=== PATIENT | female | born 2000 | race Two or more races ===

== ENCOUNTER 2021-04-22 07:17 | Day surgery (SDC) | payer OTHER | END 2021-04-22 20:40 | disposition home or self-care (01) | LOC: CIR.AMB 07:17 | PROVIDERS: ATTEND Specialist | DX: O02.1 Missed abortion (principal); Z20.822 Contact with and (suspected) exposure to COVID-19 ==

== ENCOUNTER 2023-08-29 08:11 | Outpatient (CLI) | payer OTHER ==
[2023-08-29 09:08] LABS: PH,URINE 6.5 (5.0-8.0); URINE APPEARANCE Cloudy; URINE BILIRRUBIN Negative (NEGATIVE); URINE BLOOD NHT; URINE COLOR Yellow; URINE GLUCOSE Negative (NEGATIVE); URINE LEUKOCYTE Large; URINE NITRATE Negative; URINE PROTEIN Negative (NEGATIVE); URINE UROBILINOGEN 0.2 E.U./dl
[2023-08-29 09:09] LABS: HEMATOCRIT 29.1 % (36.0-45.00); HEMOGLOBIN 9.4 g/dL (12.0-15.00); MEAN CELL VOLUME 78.6 fL (80.00-100.00); MEAN CORPUSCULAR HEMOGLOBIN 25.4 pg (27.00-32.0); MEAN CORPUSCULAR HGB CONC 32.3 g/dl (32.0-36.0); PLATELET COUNT 258 K/uL (150-450); RED CELL DISTRIBUTION WIDTH 17.1 % (11.5-14.5)
[2023-08-29 09:11] LABS: URINE BACTERIA 5228.8 uL (0.0-1933); URINE EPITHELIAL CELLS 59.5 uL (0.0-38.8); URINE RBC 4.8 uL (0.0-20.8); URINE WBC 1319.7 uL (0.0-23.2)
[2023-08-29] MEDS ORDERED: FERROUS SULFAT325 MG PO (15:21)
[2023-08-29] MEDS ORDERED: MACROBID 100 M100 MG PO (15:21)
== END 2023-08-29 16:48 | disposition home or self-care (01) ==
LOC: OBS/DEL 08:11
PROVIDERS: ATTEND Specialist
DX: O23.32 Infections of other parts of urinary tract in pregnancy, second trimester (principal); N39.0 Urinary tract infection, site not specified; O99.012 Anemia complicating pregnancy, second trimester; Z3A.27 27 weeks gestation of pregnancy

== ENCOUNTER → 2023-10-09 11:44 | Outpatient (CLI) | payer OTHER ==
[~2023-10-09 11:44] MED LIST: FERROUS SULFAT325 MG PO; MACROBID 100 M100 MG PO
== END | disposition home or self-care (01) ==
LOC: PRENATAL 11:44
PROVIDERS: ATTEND Obstetrics & Gynecology Maternal & Fetal Medicine
DX: O26.849 Uterine size-date discrepancy, unspecified trimester (principal); O36.8199 Decreased fetal movements, unspecified trimester, other fetus; Z3A.32 32 weeks gestation of pregnancy

== ENCOUNTER 2023-11-08 12:57 | Inpatient (IN) | payer OTHER ==
[~2023-11-08] VITALS: Ht 157.5 cm; Wt 3.6 kg
[2023-11-29 13:38] LABS: HEMATOCRIT 36.2 % (36.0-45.00); HEMOGLOBIN 11.8 g/dL (12.0-15.00); MEAN CELL VOLUME 84.3 fL (80.00-100.00); MEAN CORPUSCULAR HEMOGLOBIN 27.5 pg (27.00-32.0); MEAN CORPUSCULAR HGB CONC 32.7 g/dl (32.0-36.0); PLATELET COUNT 221 K/uL (150-450)
[2023-11-29 13:39] LABS: RED CELL DISTRIBUTION WIDTH 22.5 % (11.5-14.5)
[2023-11-29 14:08] LABS: INR 0.95; PARTIAL THROMBOPLASTIN TIME 30.2 SECONDS (22.0-34.0)
[2023-11-29 14:09] LABS: ALBUMIN 2.7 gm/dL (3.4-5.0); BILIRUBIN TOTAL 0.26 mg/dL (0.3-1.2); CALCIUM 9.1 mg/dL (8.5-10.1); CREATININE SERUM 0.53 mg/dL (0.55-1.02); GFR 142.95; GLOBULINA 3.8 G/DL (2.4-3.5); POTASSIUM 4.16 mEq/L (3.5-5.1); TOTAL PROTEIN 6.5 gm/dL (6.4-8.2)
[2023-11-29 14:12] LABS: PH,URINE 6.5 (5.0-8.0); URINE APPEARANCE Cloudy; URINE BILIRRUBIN Negative (NEGATIVE); URINE BLOOD Negative; URINE COLOR Yellow; URINE GLUCOSE Negative (NEGATIVE); URINE LEUKOCYTE Moderate; URINE NITRATE Negative; URINE PROTEIN Negative (NEGATIVE)
[2023-11-29 14:17] LABS: URINE BACTERIA 2281.6 uL (0.0-1933); URINE RBC 4.5 uL (0.0-20.8); URINE WBC 122.8 uL (0.0-23.2)
[2023-11-30] MEDS ORDERED: PRENATAL TABLE1 EAC1 PO (07:57)
[2023-11-30] MEDS ORDERED: IRON236 MG PO (07:57)
[2023-11-30] MEDS ORDERED: MAXFE CAPLET1 EAC1 (10:44)
[2023-12-01 01:42] LABS: HEMOGLOBIN 10.9 g/dL (12.0-15.00); MEAN CELL VOLUME 84.4 fL (80.00-100.00); MEAN CORPUSCULAR HEMOGLOBIN 27.8 pg (27.00-32.0); PLATELET COUNT 210 K/uL (150-450); RED BLOOD COUNT 3.91 M/uL (4.00-6.00)
[2023-12-03] MEDS ORDERED: IBUPROFEN800 MG PO (08:26)
== END 2023-12-03 13:26 | disposition home or self-care (01) | DRG 788 ==
LOC: OB/GYN 11-30 07:53 → O/R 11-30 07:53 → OB/GYN 11-30 09:00
PROVIDERS: ADMIT Specialist; ATTEND Specialist
PROC: 4A1HXCZ Monitoring of Products of Conception, Cardiac Rate, External Approach (ICD-10-PCS; 2023-11-30)
PROC: 10D00Z1 Extraction of Products of Conception, Low, Open Approach (ICD-10-PCS; principal; 2023-11-30 09:00)
DX: O33.8 Maternal care for disproportion of other origin (principal); O99.824 Streptococcus B carrier state complicating childbirth; O48.0 Post-term pregnancy; O99.02 Anemia complicating childbirth; D64.9 Anemia, unspecified; Z3A.40 40 weeks gestation of pregnancy; Z37.0 Single live birth; Z20.822 Contact with and (suspected) exposure to COVID-19

== ENCOUNTER 2025-06-29 18:17 | Inpatient (IN) | payer OTHER ==
[~2025-06-29] VITALS: Ht 152.4 cm; Wt 90.3 kg
[2025-06-29 17:11] VITALS: BP 96/59
[~2025-06-29 18:17] MED LIST changes: +IBUPROFEN800 MG PO; +IRON236 MG PO; +MAXFE CAPLET1 EAC1; +PRENATAL TABLE1 EAC1 PO
[2025-06-29] MEDS ORDERED: RINGERS SOLUTION,LACTATED 1,000 ML IV SCH (18:30)
[2025-06-29 18:52] LABS: BASO % 0.1 % (0.1-1.2); EOS # 0.03 (0.04-0.54); EOS % 0.2 % (0.7-7.0); LYMPH # 1.57 (1.18-3.74); LYMPH % 11.0 % (19.3-53.1); MEAN PLATELET VOLUME 9.00 fl (9.4-12.4); MONO # 0.80 (0.24-0.82); MONO % 5.6 % (4.7-12.5); NEUT # 11.55 (1.56-6.13); NEUT % 81.4 % (34.0-71.1); RED CELL DISTRIBUTION WIDTH 18.2 % (11.6-14.4)
[2025-06-29 18:54] LABS: URINE APPEARANCE Clear; URINE BILIRRUBIN Negative (NEGATIVE); URINE BLOOD Negative; URINE COLOR Yellow; URINE GLUCOSE Negative (NEGATIVE); URINE KETONE 15 (NEGATIVE); URINE LEUKOCYTE Large; URINE NITRATE Negative; URINE PROTEIN Trace (NEGATIVE); URINE UROBILINOGEN 1.0 E.U./dl
[2025-06-29 18:57] LABS: URINE BACTERIA 1673.8 uL (0.0-1933); URINE EPITHELIAL CELLS 88.9 uL (0.0-38.8); URINE RBC 3.3 uL (0.0-20.8); URINE WBC 131.0 uL (0.0-23.2)
[2025-06-29 19:06] LABS: INR 1.0
[2025-06-29 19:22] LABS: ALT/SGPT 14.0 U/L (12-78); AST/SGOT 13.0 U/L (15-37); BILIRUBIN TOTAL 0.5 mg/dL (0.3-1.2); BUN CREA RATIO 11.0 (7.0-25.0); CREATININE SERUM 0.44 mg/dL (0.55-1.02); GFR 175.68; GLOBULINA 3.9 G/DL (2.4-3.5); GLUCOSE FASTING 74.0 mg/dL (65-100); OSMOLALITY SERUM 275.0 MOSM/KG (275-295)
[2025-06-29 19:23] LABS: URINE CAST 0.00 uL (0.0-1.40); URINE MUCUS NEGATIVE
[2025-06-29 19:24] LABS: TYPE CELLS SQUAMOUS; URINE YEAST FEW /hpf
[2025-06-29 20:21] VITALS: BP 113/71
[2025-06-29 23:20] VITALS: BP 106/49
[2025-06-30 03:09] VITALS: BP 115/69
[2025-06-30 06:19] VITALS: BP 100/59; O2SAT 98
[2025-06-30] MEDS ORDERED: RINGERS SOLUTION,LACTATED 1,000 ML IV SCH (08:00)
[2025-06-30] MEDS ORDERED: SOD FERRIC GLUC COMPLX/SUCROSE 62.5 MG in 0.9 % SODIUM CHLORIDE 50 ML IV SCH (09:00)
[2025-06-30 12:45] VITALS: BP 94/61
[2025-06-30 15:13] VITALS: BP 101/64
[2025-06-30 15:32] VITALS: BP 101/64
[2025-06-30 16:00] VITALS: BP 115/80
[2025-07-01] VITALS: BP 99/53
[2025-07-01 08:41] VITALS: BP 108/64
[2025-07-01] MEDS ORDERED: FERROUS SULFATE 325 MG TABLET.EC PO SCH (09:00)
[2025-07-01] MEDS ORDERED: EPOETIN ALFA-EPBX 10,000 UNIT/ML VIAL (Retacrit) SUBCUTANEO NR (12:30)
[2025-07-01 17:13] VITALS: BP 98/67
[2025-07-02] VITALS: BP 105/63
[2025-07-02] MEDS ORDERED: BETAMETHASONE ACETATE,SOD PHOS 30 MG/5 ML ML IM STA (07:53)
[2025-07-02 09:37] VITALS: BP 107/67
[2025-07-02 16:14] VITALS: BP 110/68
[2025-07-03] VITALS: BP 107/62
[2025-07-03 00:54] LABS: BASO % 0.2 % (0.1-1.2); EOS # 0.00 (0.04-0.54); EOS % 0.0 % (0.7-7.0); LYMPH # 1.32 (1.18-3.74); LYMPH % 6.8 % (19.3-53.1); MEAN PLATELET VOLUME 9.20 fl (9.4-12.4); MONO # 0.79 (0.24-0.82); MONO % 4.1 % (4.7-12.5); NEUT # 15.66 (1.56-6.13); NEUT % 81.1 % (34.0-71.1); RED CELL DISTRIBUTION WIDTH 18.6 % (11.6-14.4)
[2025-07-03 01:40] LABS: BAND MAN 8.0 %; EOSINOPHIL MAN 1.0 %; LYMPHOCYTE MAN 6.0 %; MYELOCYTE 6.0 %; NEUTROPHILS MAN 79.0 %
[2025-07-03 08:00] VITALS: BP 101/61
[2025-07-03] MEDS ORDERED: BETAMETHASONE ACETATE,SOD PHOS 30 MG/5 ML ML IM NR (08:00)
[2025-07-03] MEDS ORDERED: EPOETIN ALFA-EPBX 10,000 UNIT/ML VIAL (Retacrit) SUBCUTANEO SCH (09:00)
[2025-07-03 16:00] VITALS: BP 93/52
[2025-07-03 23:39] VITALS: BP 112/65
[2025-07-04 08:00] VITALS: BP 107/54
[2025-07-04 17:38] VITALS: BP 124/78
[2025-07-04 18:10] LABS: BASO % 0.3 % (0.1-1.2); EOS # 0.04 (0.04-0.54); EOS % 0.2 % (0.7-7.0); LYMPH # 2.10 (1.18-3.74); LYMPH % 9.8 % (19.3-53.1); MEAN PLATELET VOLUME 8.90 fl (9.4-12.4); MONO # 1.93 (0.24-0.82); MONO % 9.0 % (4.7-12.5); NEUT # 15.53 (1.56-6.13); NEUT % 72.8 % (34.0-71.1); RED CELL DISTRIBUTION WIDTH 21.3 % (11.6-14.4)
[2025-07-05 01:28] VITALS: BP 104/68
[2025-07-05 08:36] VITALS: BP 101/64
[2025-07-05 09:09] LABS: BASO % 0.3 % (0.1-1.2); EOS # 0.06 (0.04-0.54); EOS % 0.3 % (0.7-7.0); LYMPH # 2.19 (1.18-3.74); LYMPH % 10.6 % (19.3-53.1); MEAN PLATELET VOLUME 8.90 fl (9.4-12.4); MONO # 1.71 (0.24-0.82); MONO % 8.3 % (4.7-12.5); NEUT # 14.98 (1.56-6.13); NEUT % 72.5 % (34.0-71.1); RED CELL DISTRIBUTION WIDTH 22.1 % (11.6-14.4)
[2025-07-05 09:26] LABS: BAND MAN 2.0 %; NEUTROPHILS MAN 75.0 %
[2025-07-05 09:27] LABS: EOSINOPHIL MAN 1.0 %; LYMPHOCYTE MAN 11.0 %; METAMYELOCYTE 3.0 %; MONOCYTE MAN 8.0 %
[2025-07-05] MEDS ORDERED: ACETAMINOPHEN 500 MG GEL..CAP PO PRN (15:45)
[2025-07-05 16:00] VITALS: BP 117/66
[2025-07-06 00:20] VITALS: BP 104/65
[2025-07-06] MEDS ORDERED: FERROUS SULFAT325 MG PO (07:57)
[2025-07-06 08:00] VITALS: BP 111/68
== END 2025-07-06 10:04 | disposition home or self-care (01) | DRG 831 ==
LOC: OBS/DEL 18:17 → LDR 06-30 08:03 → OBS/DEL 06-30 08:03 → OB/GYN 06-30 08:03
PROVIDERS: ADMIT Specialist; ATTEND Specialist
PROC: BY4GZZZ Ultrasonography of Third Trimester, Multiple Gestation (ICD-10-PCS; principal; 2025-06-30)
PROC: BU4CZZZ Ultrasonography of Uterus and Ovaries (ICD-10-PCS; 2025-06-30)
PROC: BY47ZZZ Ultrasonography of Fetal Umbilical Cord (ICD-10-PCS; 2025-06-30)
PROC: 4A1HXCZ Monitoring of Products of Conception, Cardiac Rate, External Approach (ICD-10-PCS; 2025-06-30)
PROC: 30233N1 Transfusion of Nonautologous Red Blood Cells into Peripheral Vein, Percutaneous Approach (ICD-10-PCS; 2025-07-04)
DX: O30.043 Twin pregnancy, dichorionic/diamniotic, third trimester (principal); O60.03 Preterm labor without delivery, third trimester; O44.03 Complete placenta previa NOS or without hemorrhage, third trimester; O36.5931 Maternal care for other known or suspected poor fetal growth, third trimester, fetus 1; O32.1XX1 Maternal care for breech presentation, fetus 1; O36.8132 Decreased fetal movements, third trimester, fetus 2; O36.8331 Maternal care for abnormalities of the fetal heart rate or rhythm, third trimester, fetus 1; Z3A.29 29 weeks gestation of pregnancy; O26.843 Uterine size-date discrepancy, third trimester; O34.211 Maternal care for low transverse scar from previous cesarean delivery; O99.013 Anemia complicating pregnancy, third trimester; D64.9 Anemia, unspecified

== ENCOUNTER 2025-07-21 08:59 | Outpatient (CLI) | payer OTHER | END 2025-07-21 10:17 | disposition home or self-care (01) | LOC: NST 08:59 | PROVIDERS: ATTEND Specialist | DX: Z34.83 Encounter for supervision of other normal pregnancy, third trimester (principal) ==

== ENCOUNTER 2025-07-28 09:35 | Outpatient (CLI) | payer OTHER | END 2025-07-28 10:00 | disposition home or self-care (01) | LOC: NST 09:35 | PROVIDERS: ATTEND Specialist | DX: Z34.83 Encounter for supervision of other normal pregnancy, third trimester (principal) ==

== ENCOUNTER 2025-08-03 07:00 | Inpatient (IN) | payer OTHER ==
[~2025-08-03] VITALS: Ht 157.5 cm; Wt 2.3 kg
[2025-08-07 10:10] LABS: BASO % 0.2 % (0.1-1.2); EOS # 0.09 (0.04-0.54); EOS % 0.8 % (0.7-7.0); LYMPH # 1.84 (1.18-3.74); LYMPH % 17.3 % (19.3-53.1); MEAN PLATELET VOLUME 9.00 fl (9.4-12.4); MONO # 0.74 (0.24-0.82); MONO % 6.9 % (4.7-12.5); NEUT # 7.86 (1.56-6.13); NEUT % 73.8 % (34.0-71.1)
[2025-08-07 10:15] LABS: URINE APPEARANCE Cloudy; URINE BILIRRUBIN Negative (NEGATIVE); URINE BLOOD Negative; URINE COLOR Yellow; URINE GLUCOSE Negative (NEGATIVE); URINE KETONE Negative (NEGATIVE); URINE LEUKOCYTE Large; URINE NITRATE Negative; URINE PROTEIN Negative (NEGATIVE); URINE UROBILINOGEN 1.0 E.U./dl
[2025-08-07 10:21] LABS: URINE BACTERIA 2815.2 uL (0.0-1933); URINE EPITHELIAL CELLS 80.9 uL (0.0-38.8); URINE RBC 3.2 uL (0.0-20.8); URINE WBC 171.5 uL (0.0-23.2)
[2025-08-07 10:33] LABS: INR 0.98
[2025-08-07 10:52] LABS: URINE CAST 0.58 uL (0.0-1.40)
[2025-08-07 10:54] LABS: TYPE CELLS SQUAMOUS; URINE YEAST FEW /hpf
[2025-08-07 11:16] LABS: ALT/SGPT 12.0 U/L (12-78); AST/SGOT 13.0 U/L (15-37); BILIRUBIN TOTAL 0.42 mg/dL (0.3-1.2); BUN CREA RATIO 13.0 (7.0-25.0); CREATININE SERUM 0.47 mg/dL (0.55-1.02); GFR 161.46; GLOBULINA 3.6 G/DL (2.4-3.5); GLUCOSE FASTING 102.0 mg/dL (65-100); OSMOLALITY SERUM 281.0 MOSM/KG (275-295)
[2025-08-14 06:43] VITALS: BP 122/75
[2025-08-14] MEDS ORDERED: CEFAZOLIN SODIUM 1,000 MG VIAL ONE ×2 (08:01→15:10)
[2025-08-14] MEDS ORDERED: OXYTOCIN 10 UNITS/ML VIAL ONE (09:01)
[2025-08-14] MEDS ORDERED: ERYTHROMYCIN BASE OPHT 1GM EACH TUBE OP ONE ×2 (09:02→09:52)
[2025-08-14] MEDS ORDERED: MORPHINE SULFATE 4 MG/ML CARTRIDGE IV PRN (13:45)
[2025-08-14] MEDS ORDERED: RINGERS SOLUTION,LACTATED 1,000 ML IV SCH (13:45)
[2025-08-14] MEDS ORDERED: ONDANSETRON HCL 2 MG/ML VIAL IV ONE (14:00)
[2025-08-14] MEDS ORDERED: CEFAZOLIN SODIUM 1,000 MG VIAL IV SCH (14:00)
[2025-08-14] MEDS ORDERED: KETOROLAC TROMETHAMINE 60 MG VIAL IM ONE ×3 (15:48→16:15)
[2025-08-14 18:17] VITALS: BP 142/62
[2025-08-15 01:16] VITALS: BP 114/74
[2025-08-15 01:17] VITALS: BP 136/81
[2025-08-15 01:38] LABS: BASO % 0.1 % (0.1-1.2); EOS # 0.03 (0.04-0.54); EOS % 0.3 % (0.7-7.0); LYMPH # 1.49 (1.18-3.74); LYMPH % 12.5 % (19.3-53.1); MEAN PLATELET VOLUME 9.10 fl (9.4-12.4); MONO # 0.95 (0.24-0.82); MONO % 8.0 % (4.7-12.5); NEUT # 9.38 (1.56-6.13); NEUT % 78.4 % (34.0-71.1)
[2025-08-15 01:47] LABS: RED CELL DISTRIBUTION WIDTH 27.1 % (11.6-14.4)
[2025-08-15 06:27] VITALS: BP 116/67
[2025-08-15 08:42] VITALS: BP 121/75
[2025-08-15] MEDS ORDERED: ACETAMINOPHEN 500 MG GEL..CAP PO PRN (09:45)
[2025-08-15 13:32] VITALS: BP 109/69
[2025-08-15 18:15] VITALS: BP 124/80
[2025-08-16 00:07] VITALS: BP 104/72
[2025-08-16 08:00] VITALS: BP 120/76
[2025-08-16 16:07] VITALS: BP 117/73
[2025-08-16] MEDS ORDERED: SIMETHICONE 125 MG CAPSULE PO SCH (17:00)
[2025-08-16 23:29] VITALS: BP 109/68
[2025-08-17] MEDS ORDERED: IBUPROFEN800 MG PO (07:59)
[2025-08-17 08:09] VITALS: BP 120/77
== END 2025-08-17 10:23 | disposition home or self-care (01) | DRG 783 ==
LOC: OB/GYN 08-14 06:00 → O/R 08-14 06:00 → OB/GYN 08-14 07:45
PROVIDERS: ADMIT Specialist; ATTEND Specialist
PROC: 0UB70ZZ Excision of Bilateral Fallopian Tubes, Open Approach (ICD-10-PCS; 2025-08-14)
PROC: 4A1HXCZ Monitoring of Products of Conception, Cardiac Rate, External Approach (ICD-10-PCS; 2025-08-14)
PROC: 10D00Z1 Extraction of Products of Conception, Low, Open Approach (ICD-10-PCS; principal; 2025-08-14 09:30)
DX: O34.211 Maternal care for low transverse scar from previous cesarean delivery (principal); O60.14X2 Preterm labor third trimester with preterm delivery third trimester, fetus 2; O30.043 Twin pregnancy, dichorionic/diamniotic, third trimester; O36.5932 Maternal care for other known or suspected poor fetal growth, third trimester, fetus 2; O32.2XX1 Maternal care for transverse and oblique lie, fetus 1; Z37.2 Twins, both liveborn; Z3A.35 35 weeks gestation of pregnancy; Z30.2 Encounter for sterilization

== ENCOUNTER 2025-08-04 09:24 | Outpatient (CLI) | payer OTHER | END 2025-08-04 10:28 | disposition home or self-care (01) | LOC: NST 09:24 | PROVIDERS: ATTEND Specialist | DX: Z34.83 Encounter for supervision of other normal pregnancy, third trimester (principal) ==